=== PATIENT | male | born 1985 | race Caucasian/White ===

== ENCOUNTER 2016-05-18 17:45 | Emergency (ER) | payer MEDICAID ==
[~2016-05-18] VITALS: Ht 177.8 cm; Wt 93.0 kg
[2016-05-18 19:00] VITALS: BP 133/69
[2016-05-18] MEDS ORDERED: NORCO 5/325 MG1 TAB (19:03)
--- NOTE | 2016-05-18 20:40 | NUR ---
Patient to [facility]
--- NOTE | 2016-05-18 20:50 | NUR ---
TIRE RETREADER SEEING PT AND EVALUATING.
--- NOTE | 2016-05-18 20:52 | NUR ---
PATIENT PRESENTS TO ED WITH C.O. RT 4TH FINGER INURY X3 DAYS AGO. SKIN IS PINK/WARM/DRY; AAOX4 WITH EVEN AND STEADY GAIT; LUNGS CLEAR BL; HR EVEN AND REGULAR; PT DENIES ANY FEVER, CP, SOB, OR COUGH AT THIS TIME; PATIENT STATES PAIN OF 7/10 AT THIS TIME; VSS; PATIENT POSITIONED FOR COMFORT; HOB ELEVATED; BEDRAILS UP X2; BED DOWN. ER MD MADE AWARE OF PT STATUS.
--- NOTE | 2016-05-18 21:45 | NUR ---
RETAIL ASSISTANT MANAGER REEVALUATING PT.
[2016-05-18 21:47] VITALS: BP 128/65
--- NOTE | 2016-05-18 21:47 | NUR ---
Patient discharged with v/s stable. Written and verbal after care instructions given and explained. Patient alert, oriented and verbalized understanding of instructions. Ambulatory with steady gait. All questions addressed prior to discharge. ID band removed. Patient advised to follow up with PMD. Rx of NORCO 10MG-325MG TABLET 1 TAB ORALLY, EVERY 4 HOURS BY MOUTH given. Patient educated on indication of medication including possible reaction and side effects. Opportunity to ask questions provided and answered.
== END 2016-05-18 21:47 | disposition home or self-care (01) ==
LOC: MED 17:45
DX: S62.634A Displaced fracture of distal phalanx of right ring finger, initial encounter for closed fracture (principal); X58.XXXA Exposure to other specified factors, initial encounter; Y93.89 Activity, other specified; Y92.89 Other specified places as the place of occurrence of the external cause; Y99.8 Other external cause status